=== PATIENT | female | born 1980 | race Caucasian/White ===

== ENCOUNTER 2020-07-30 11:25 | Emergency (ER) | payer MEDICAID ==
[~2020-07-30] VITALS: Ht 175.3 cm; Wt 66.0 kg
--- NOTE | 2020-07-30 11:45 | NUR ---
PT BIB EMS FROM [facility] ON A LEGAL HOLD. PER EMS PT HASN'T EATEN OR DRANK ANYTHING IN 4 DAYS. PT STATES SHE WILL NOT EAT ANYTHING BECAUSE THEY ARE PUTTING TOILET WATER IN HER FOOD. PER EMS PT ALSO STOPPED TAKING HER MEDS 2 DAYS AGO. PT DENIES SI/HI. PT STATING SHE DOES FEEL HUNGER, BUT WILL NOT EAT FOOD THAT IS COMING FROM THE [place].
--- NOTE | 2020-07-30 11:45 | NUR ---
PT BELONGINGS SECURED AND PLACED IN LOCKER. ROOM SECURED. PT PLACED IN HOSPITAL GOWN. SITTER OUTSIDE ROOM IN FULL VIEW OF THE PATIENT. VSS.
--- NOTE | 2020-07-30 11:50 | NUR ---
MD ADVISING PT CAN HAVE FOOD. DIETARY CONTACTED REGARDING PACKAGED FOOD.
[2020-07-30 12:21] LABS: BASOPHILS % (AUTO) 1 % (0-1); EOSINOPHILS % (AUTO) 2 % (1-7); LYMPHOCYTES % (AUTO) 32 % (22-44); MD NO; MEAN CORPUSCULAR HEMOGLOBIN 30.9 pg (27.0-34.8); MEAN CORPUSCULAR HGB CONC 33.1 g/dL (32.4-35.8); MEAN PLATELET VOLUME 9.2 fL (7.4-10.4); MONOCYTES % (AUTO) 8 % (2-9); NEUTROPHILS % (AUTO) 57 % (42-75); PLATELET COUNT 239 x10^3/uL (130-400); RED BLOOD COUNT 4.31 x10^6/uL (3.82-5.3); RED CELL DISTRIBUTION WIDTH 14.2 % (9.6-15.2)
[2020-07-30 12:32] LABS: ALBUMIN 4.1 g/dL (3.4-5.0); ANION GAP 4 mmol/L (5-15); CALCIUM 9.4 mg/dL (8.5-10.1); CHLORIDE 108 mmol/L (98-107); CREATININE 0.81 mg/dL (0.55-1.02); SALICYLATE LEVEL 2.2 mg/dL (2.8-20.0)
--- NOTE | 2020-07-30 12:37 | NUR ---
PT LUNCH TRAY DELIVERED. PT STATES SHE WILL EAT THE FOOD. SITTER OUTSIDE ROOM. ROOM SECURED. RAIL UP X 1.
--- NOTE | 2020-07-30 13:00 | NUR ---
assumed care of pt. report from Niecy CHEN pt here on legal hold from [facility] s/p SA, pt has not been eating x4 days. pt has had meal tray delivered and has eaten more than 75% of her meal. pt is currently in the BR. room secure. sitter present for safety
--- NOTE | 2020-07-30 13:16 | NUR ---
pt has been medically cleared. pt to be transfered back to [facility].
--- NOTE | 2020-07-30 13:25 | NUR ---
AGNES RN: KAYLIE TO SUPERVISING NURSE PT FOR TRANSPORT TO [facility] @1400.
[2020-07-30 13:27] VITALS: BP 112/70
--- NOTE | 2020-07-30 13:38 | NUR ---
awaiting transport to [facility]. pt has been updated on POC. room secure. sitter present for safety report to Socorro CHEN and Spencer CHEN for lunch
== END 2020-07-30 14:28 ==
LOC: ED 12:06
DX: R53.83 Other fatigue (principal)
CPT/HCPCS: 36415; 80048; 80299; 80320; 80329; 82040; 84703; 85025; 99285; G0480